=== PATIENT | male | born 1955 | race Caucasian/White ===

== ENCOUNTER 2020-07-28 13:29 | Emergency (ER) | payer OTHER, BC ==
[~2020-07-28] VITALS: Ht 167.6 cm; Wt 72.6 kg
[2020-07-28] MEDS ORDERED: IBUPROFEN 600 MG TABLET PO ONE (13:45)
[2020-07-28 13:46] VITALS: BP_SYST 187
[2020-07-28] MEDS ORDERED: IBUP-1969 PO (13:49)
[2020-07-28 14:42] VITALS: BP_SYST 156
== END 2020-07-28 14:44 | disposition home or self-care (01) ==
LOC: SED 13:29
DX: S00.83XA Contusion of other part of head, initial encounter (principal); S00.81XA Abrasion of other part of head, initial encounter; W18.39XA Other fall on same level, initial encounter; Y93.89 Activity, other specified; Y92.89 Other specified places as the place of occurrence of the external cause; Y99.8 Other external cause status
CPT/HCPCS: 70110-TC; 99283